=== PATIENT | male | born 1980 | race Two or more races ===

== ENCOUNTER 2020-06-22 16:38 | Emergency (ER) | payer BC ==
[~2020-06-22] VITALS: Ht 180.3 cm; Wt 100.0 kg
[2020-06-22 17:58] VITALS: BP 156/102
--- NOTE | 2020-06-22 19:35 | NUR ---
uriel examine begun at 1700 and ended at 1800 pt was in [facility] custody
== END 2020-06-22 19:36 ==
LOC: ER 16:39 → EEVIPCON 16:39 → ER 19:36
DX: I10 Essential (primary) hypertension (principal)
CPT/HCPCS: 99283